=== PATIENT | male | born 1960 | race Caucasian/White ===

== ENCOUNTER 2018-01-13 19:17 | Emergency (ER) | payer OTHER ==
[~2018-01-13] VITALS: Ht 175.3 cm; Wt 56.0 kg
[~2018-01-13 19:17] MED LIST: METF500T PO; TAMS0.4C4 PO
[2018-01-13 19:28] VITALS: BP 174/112; PULSE 130; RESP 18; TEMP 97.3; O2SAT 98
[2018-01-13] MEDS ORDERED: ONDANSETRON HCL 4 MG/2 ML VIAL IVP ONE (20:00)
[2018-01-13] MEDS ORDERED: SODIUM CHLOR 0.9% 1000 ML INJ 1,000 ML IV ONE ×2 (20:00→22:15)
[2018-01-13] MEDS ORDERED: SODIUM CHLORIDE 0.9% FLUSH 10 ML FLUSH IV FLUSH PRN (20:00)
[2018-01-13 20:19] VITALS: BP 166/97; PULSE 103; RESP 20; O2SAT 100
--- NOTE | 2018-01-13 20:29 | PD ---
HPI Chief Complaint: Diabetic Time Seen by Provider: 19:46 Travel History International Travel<30 days: No Contact w/Intl Traveler<30days: No Traveled to known affect area: No History of Present Illness HPI 37-year-old male with PMH of DM, on Metformin presents the ED for evaluation of "a few days" history of nausea, NBNB vomiting and elevated blood glucose. The patient state that he measured a blood sugar of 500 today. He states that he does not regularly check his BGL. He endorses intermittent dizziness. He denies headache, vision changes, CP, palpitations, SOB, abdominal pain, changes in bowel habits, dysuria, hematuria. Also complains of weight loss,estimates that he lost 20 lbs in the last month. He states that he has been exercising and on a restricted diet to lower his blood sugars, but his hemoglobin A1c went up at last PCP visit. He is followed by the residents, last visit in June. Endorses occasional marijuana use. Denies illicit drug or alcohol use. PFSH Past Medical History Diabetes: Yes Patient Takes Glucophage: Yes (01/13/2018 1900) Diminished Hearing: No Tetanus Vaccination: Unknown Influenza Vaccination: No Past Surgical History Other Surgery: Yes (vasectomy) Social History Alcohol Use: No Tobacco Use: No Substance Use: Yes (marijauna) Allergies-Medications (Allergen,Severity, Reaction): Coded Allergies: No Known Allergies (Unverified Adverse Reaction, Unknown, 01/13/18) Reported Meds & Prescriptions Reported Meds & Active Scripts Active Metformin (Metformin HCl) 500 Mg Tab 500 Mg PO DAILY With a meal Tamsulosin (Tamsulosin HCl) 0.4 Mg Cap 0.4 Mg PO HS Review of Systems Except as stated in HPI: all other systems reviewed are Neg Physical Exam Narrative GENERAL: Well-nourished, well-developed white male in no acute distress. SKIN: Focused skin assessment warm/dry. HEAD: Normocephalic. EYES: No scleral icterus. No injection or drainage. NECK: Supple, trachea midline. No JVD or lymphadenopathy. CARDIOVASCULAR: Regular rate and rhythm without murmurs, gallops, or rubs. RESPIRATORY: Breath sounds clear and equal bilaterally. No accessory muscle use. No tachypnea. GASTROINTESTINAL: Abdomen soft, non-tender, nondistended. Active bowel sounds. MUSCULOSKELETAL: No cyanosis, or edema. BACK: Nontender without obvious deformity. No CVA tenderness. Data Data Last Documented VS Vital Signs Date Time Temp Pulse Resp B/P (MAP) Pulse Ox O2 Delivery O2 Flow Rate FiO2 01/14/18 00:09 01/13/18 20:19 103 20 100 Room Air 01/13/18 19:28 97.3 Orders Orders Complete Blood Count With Diff (01/13/18 19:52) Comprehensive Metabolic Panel (01/13/18 19:52) Urinalysis - C+S If Indicated (01/13/18 19:52) Iv Access Insert/Monitor (01/13/18 19:52) Ecg Monitoring (01/13/18 19:52) Oximetry (01/13/18 19:52) Ondansetron Inj (Zofran Inj) (01/13/18 20:00) Sodium Chloride 0.9% Flush (Ns Flush) (01/13/18 20:00) Thyroid Stimulating Hormone (01/13/18 19:52) Blood Glucose (01/13/18 19:55) Sodium Chlor 0.9% 1000 Ml Inj (Ns 1000 M (01/13/18 20:00) Insulin Human Regular Inj (Novolin R Inj (01/13/18 22:15) Sodium Chlor 0.9% 1000 Ml Inj (Ns 1000 M (01/13/18 22:15) Blood Glucose (01/13/18 22:40) Insulin Human Regular Inj (Novolin R Inj (01/13/18 23:15) Ed Discharge Order (01/13/18 23:59) Labs Laboratory Tests Test 01/13/18 20:26 01/13/18 21:57 White Blood Count 11.4 TH/MM3 Red Blood Count 5.76 MIL/MM3 Hemoglobin 17.3 GM/DL Hematocrit 49.4 % Mean Corpuscular Volume 85.7 FL Mean Corpuscular Hemoglobin 30.1 PG Mean Corpuscular Hemoglobin Concent 35.1 % Red Cell Distribution Width 12.8 % Platelet Count 265 TH/MM3 Mean Platelet Volume 9.1 FL Neutrophils (%) (Auto) 81.6 % Lymphocytes (%) (Auto) 11.1 % Monocytes (%) (Auto) 6.8 % Eosinophils (%) (Auto) 0.1 % Basophils (%) (Auto) 0.4 % Neutrophils # (Auto) 9.3 TH/MM3 Lymphocytes # (Auto) 1.3 TH/MM3 Monocytes # (Auto) 0.8 TH/MM3 Eosinophils # (Auto) 0.0 TH/MM3 Basophils # (Auto) 0.0 TH/MM3 CBC Comment DIFF FINAL Differential Comment Blood Urea Nitrogen 21 MG/DL Creatinine 1.15 MG/DL Random Glucose 515 MG/DL Total Protein 7.2 GM/DL Albumin 3.8 GM/DL Calcium Level 9.4 MG/DL Alkaline Phosphatase 135 U/L Aspartate Amino Transf (AST/SGOT) 12 U/L Alanine Aminotransferase (ALT/SGPT) 38 U/L Total Bilirubin 1.0 MG/DL Sodium Level 127 MEQ/L Potassium Level 4.5 MEQ/L Chloride Level 92 MEQ/L Carbon Dioxide Level 24.1 MEQ/L Anion Gap 11 MEQ/L Estimat Glomerular Filtration Rate 66 ML/MIN Thyroid Stimulating Hormone 3rd Gen 1.180 uIU/ML Urine Color LIGHT-YELLOW Urine Turbidity CLEAR Urine pH 6.5 Urine Specific [place] 1.036 Urine Protein NEG mg/dL Urine Glucose (UA) 1000 mg/dL Urine Ketones 40 mg/dL Urine Occult Blood NEG Urine Nitrite NEG Urine Bilirubin NEG Urine Urobilinogen LESS THAN 2.0 MG/DL Urine Leukocyte Esterase NEG Urine RBC 1 /hpf Urine WBC 1 /hpf Urine Squamous Epithelial Cells <1 /hpf Microscopic Urinalysis Comment CULT NOT INDICATED MDM Medical Decision Making Medical Screen Exam Complete: Yes Emergency Medical Condition: Yes Differential Diagnosis Hyperglycemia versus noncompliance versus metabolic derangement versus other Narrative Course 37-year-old male with PMH of DM, on Metformin presents the ED for evaluation of "a few days" history of nausea, NBNB vomiting and elevated blood glucose. The patient state that he measured a blood sugar of 500 today. He is followed by the residents, last visit in June. States that he has an upcoming appointment early next week. Patient's tachycardic, hypertensive on presentation. Physical exam is reassuring. No tachypnea noted. I reviewed the patient's record, weight was 166 pounds self-reported in June 2017. According to the reviewed records the patient has refused insulin on multiple occasions. He also complained of weight loss at his last 2 visits with the residents. IV was established. Patient was administered 1 L normal saline, 4 mg of Zofran. CBC: WBC 11.4. Hemoglobin 17.3. CMP: Sodium 127, chloride 92. BUN 21, creatinine 1.15. Glucose 515. TSH: 1.18. UA: No culture indicated. Patient was administered a second liter of normal saline and 5 mg subcu NovoLog. Blood glucose 299 at bedside recheck. Patient states that he is comfortable following up with the residents on Friday as planned. He is stable and discharged home. Diagnosis Primary Impression: Hyperglycemia due to type 2 diabetes mellitus Qualified Codes: E11.65 - Type 2 diabetes mellitus with hyperglycemia Referrals: Primary Care Physician Additional Instructions: Rest, hydrate. Resume at home medications as previously prescribed. Follow with the primary care on Friday as planned. Return to the ED for worsening symptoms or any urgent/ emergent medical condition. Disposition: DISCHARGE HOME Condition: Stable Arianna Mccarthy January 13, 2018 20:29
[2018-01-13 21:08] LABS: AUTOMATED NEUTROPHIL # 9.3 TH/MM3 (1.8-7.7); BASOPHIL % 0.4 % (0.0-2.0); EOSINOPHIL % 0.1 % (0.0-4.0); HEMATOCRIT 49.4 % (39.0-51.0); HEMOGLOBIN 17.3 GM/DL (13.0-17.0); LYMPH % 11.1 % (9.0-44.0); LYMPHOCYTE # 1.3 TH/MM3 (1.0-4.8); MEAN CELL VOLUME 85.7 FL (80.0-100.0); MEAN CORPUSCULAR HEMOGLOBIN 30.1 PG (27.0-34.0); MEAN CORPUSCULAR HGB CONC 35.1 % (32.0-36.0); MEAN PLATELET VOLUME 9.1 FL (7.0-11.0); MONO % 6.8 % (0.0-8.0); MONOCYTE # 0.8 TH/MM3 (0-0.9); NEUT % 81.6 % (16.0-70.0); PLATELET COUNT 265 TH/MM3 (150-450); RED BLOOD COUNT 5.76 MIL/MM3 (4.50-5.90); RED CELL DISTRIBUTION WIDTH 12.8 % (11.6-17.2); WHITE BLOOD COUNT 11.4 TH/MM3 (4.0-11.0)
[2018-01-13 21:44] LABS: ALBUMIN 3.8 GM/DL (3.4-5.0); ALKALINE PHOSPHATASE 135 U/L (45-117); ALT (GPT) 38 U/L (12-78); AST (GOT) 12 U/L (15-37); BICARBONATE 24.1 MEQ/L (21.0-32.0); BLOOD UREA NITROGEN 21 MG/DL (7-18); CALCIUM 9.4 MG/DL (8.5-10.1); CHLORIDE 92 MEQ/L (98-107); CREATININE 1.15 MG/DL (0.60-1.30); GLOMERULAR FILTRATION RATE 66 ML/MIN (>89); SODIUM (NA) 127 MEQ/L (136-145); TOTAL PROTEIN 7.2 GM/DL (6.4-8.2)
[2018-01-13 21:51] LABS: GLUCOSE,RANDOM 515 MG/DL (74-106)
[2018-01-13] MEDS ORDERED: INSULIN HUMAN REGULAR 1,000 UNITS/10 ML VIAL SQ ONE ×2 (22:15→23:15)
[2018-01-13 22:16] LABS: BILIRUBIN, URINE NEG (NEG); BLOOD, URINE NEG (NEG); GLUCOSE,URINE 1000 mg/dL (NEG); KETONE, URINE 40 mg/dL (NEG); NITRITE,URINE NEG (NEG); PH, URINE 6.5 (5.0-8.5); SQUAMOUS EPITHELIAL CELL URINE <1 /hpf (0-5); URINE COLOR LIGHT-YELLOW (YELLW/STRAW); URINE LEUKOCYTE ESTERASE NEG (NEG)
== END 2018-01-14 00:18 | disposition home or self-care (01) ==
LOC: NEPE 19:17
DX: E11.65 Type 2 diabetes mellitus with hyperglycemia (principal); F12.90 Cannabis use, unspecified, uncomplicated; Z79.84 Long term (current) use of oral hypoglycemic drugs
CPT/HCPCS: 80053; 81001; 84443; 85025; 96361; 96372; 96374; 99284; J1815; J2405; J7030